=== PATIENT | female | born 1960 | race Caucasian/White ===

== ENCOUNTER 2023-09-26 08:43 | Outpatient (OUT) | payer OTHER, SELFPAY ==
--- NOTE | 2023-09-26 | MM_ITS ---
Patient Name: MARCEL NIETO MR#: [id number] : 1960 Exam Date: 09/26/2023 Ordering Doctor: Non-Staff Physician RADIOLOGY REPORT PROCEDURE: MM TOMOSYNTHESIS SCREENING BI COMPARISON: MG MAMM SCREEN 3D JOEY CAD, 09/13/2022. MG MAMM JOEY DIAG W CAD, 08/14/2021. MG MAMM SCREEN JOEY W CAD, 06/14/2020. MG MAMM JOEY SCRN W CAD DIG, 04/07/2013. INDICATIONS: Screening for malignant neoplasm Calculator Name [facility] Breast Cancer Risk Assessment Tool 5 Year Breast Cancer Risk 1.60% Lifetime Breast Cancer Risk 6.40% Personal Breast Cancer No Personal Ovarian Cancer No Treatments None Family Cancers Mother with glioblastoma cancer at age 66; Father with leukemia cancer at age 66. LOCATION: [facility] BREAST COMPOSITION: Heterogeneously dense,which may obscure small masses. FINDINGS: DIAGNOSTIC CATEGORY 1--NEGATIVE. RIGHT BREAST: No significant suspicious finding. No significant change has occurred. LEFT BREAST: No significant suspicious finding. No significant change has occurred. RECOMMENDATIONS: ROUTINE MAMMOGRAM AND CLINICAL EVALUATION IN 12 MONTHS. PLEASE NOTE: A NORMAL MAMMOGRAM DOES NOT EXCLUDE THE POSSIBILITY OF BREAST CANCER. A CLINICALLY SUSPICIOUS PALPABLE LUMP SHOULD BE BIOPSIED. Dictated by: Cory De La Cruz M.D. on 09/27/2023 at 08:57 Approved by: Cory De La Cruz M.D. on 09/27/2023 at 09:02
--- NOTE | 2023-09-26 | XR_ITS ---
[address] [address] Patient Name: MARCEL NIETO MRN: [id number] date: 1960 Sex: F Assigned Patient Location: [facility] Current Patient Location: [facility] Accession/Order Number: [id number] Exam Date: 09/26/2023 09:18 Report Date: 09/26/2023 09:38 At the request of: NON-STAFF PHYSICIAN Procedure: XR DEXA axial skeleton EXAMINATION: XR DEXA axial skeleton HISTORY: Screening COMPARISON: DEXA bone densitometry 08/14/2021 TECHNIQUE: Dual-energy X-ray absorptiometry (DXA) was performed. FINDINGS: SPINE ANALYSIS: Average bone mineral density is 1.25 g/cm2. T-score (standard deviation relative to young adult mean): 0.9 . -0.7% change since prior study. HIP ANALYSIS: Lowest bone mineral density is within the left femoral trochanter, 0.704 g/cm2. T-score (standard deviation relative to young adult mean): -1.3 . +0.5% change since prior study. XR/XR DEXA axial skeleton IMPRESSION: [employer] Classification: Osteopenia - Moderate Fracture Risk Electronically authenticated by: FRANCY JALLOH Date: 09/26/2023 09:38
== END 2023-09-26 08:44 | disposition home or self-care (01) ==
LOC: MAMMO 08:43
PROVIDERS: PCP Family Medicine
DX: Z12.31 Encounter for screening mammogram for malignant neoplasm of breast (principal); Z78.0 Asymptomatic menopausal state; Z80.6 Family history of leukemia; Z80.8 Family history of malignant neoplasm of other organs or systems; M85.89 Other specified disorders of bone density and structure, multiple sites
CPT/HCPCS: 36415; 77063; 77067; 77080; 82306

== ENCOUNTER 2023-09-26 09:20 | Outpatient (OUT) | payer OTHER, SELFPAY | END 2023-09-26 09:21 | disposition home or self-care (01) | LOC: LAB 09:20 | PROVIDERS: PCP Family Medicine | DX: Z78.0 Asymptomatic menopausal state (principal) | CPT/HCPCS: 36415; 82306 ==